=== PATIENT | male | born 1955 | race Caucasian/White ===

== ENCOUNTER → 2019-07-06 | Outpatient (RCR) | payer BC ==
[~2019-07-06] MED LIST: AMIO400T5 PO; ATR20T PO; DILT240C PO; FINA5TAB6 PO; LISI5TAB PO; MTP25TSR PO; NFNEB10T PO; RIVA20TA2 PO; ROSU10TA12 PO
== END | disposition home or self-care (01) ==
LOC: ONC 04-07 13:09 → MERGE 06-16 07:49 → ONC 06-16 07:49
PROVIDERS: ATTEND Radiology Radiation Oncology
DX: C61 Malignant neoplasm of prostate (principal); I48.0 Paroxysmal atrial fibrillation; Z90.89 Acquired absence of other organs; Z98.52 Vasectomy status
CPT/HCPCS: 77300; 77301; 77334; 77336; 77338; 77385; 99204

== ENCOUNTER 2019-07-07 07:43 | Outpatient (RCR) | payer BC | END 2019-10-05 | disposition home or self-care (01) | LOC: ONC 07:43 | PROVIDERS: ATTEND Radiology Radiation Oncology | DX: Z51.0 Encounter for antineoplastic radiation therapy (principal); C61 Malignant neoplasm of prostate; I48.0 Paroxysmal atrial fibrillation; Z90.89 Acquired absence of other organs; Z98.52 Vasectomy status | CPT/HCPCS: 77336; 77385 ==

== ENCOUNTER 2022-07-17 05:55 | Outpatient (CLI) | payer BC ==
[~2022-07-17] VITALS: Ht 190.5 cm; Wt 129.5 kg
[2022-07-17] MEDS ORDERED: BUME0.5T5 PO (09:30)
[2022-07-17] MEDS ORDERED: SPIR25TA5 PO (09:30)
[2022-07-17] MEDS ORDERED: DRON400T6 PO (09:30)
[2022-07-17] MEDS ORDERED: MTP100TCR PO (09:30)
== END 2022-07-17 09:41 | disposition home or self-care (01) ==
LOC: PREOP 05:55
PROVIDERS: ATTEND Internal Medicine
DX: Z01.818 Encounter for other preprocedural examination (principal)

== ENCOUNTER 2022-07-26 09:50 | Day surgery (SDC) | payer BC ==
--- NOTE | 2022-07-15 14:23 | HISTORY AND PHYSICAL ---
DATE OF SERVICE: 07/26/2022 COLONOSCOPY SUMMARY HISTORY OF PRESENT ILLNESS: The patient is a 67-year-old white male seen for yearly wellness evaluation. It has been 11 years since his last colonoscopy that was unremarkable, so he is being set up for his second screening colonoscopy. He is not aware of any family history for colon cancer. He has not seen any red blood in the stool. Denies melena or bowel habit change. He reports that all in all, he has been feeling well. PAST MEDICAL HISTORY: Significant for persistent atrial fibrillation. In about a month, he is going to be set up for a second attempt at ablation; first was not successful. He has been compliant with anticoagulation in the form of Xarelto without any bleeding problems. 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 He back in atrial fibrillation has noticed a little decrease in exercise tolerance, but has had no chest discomfort. He has had no lightheadedness, syncope or presyncope. SOCIAL HISTORY: He is a teacher at [employer] with no past smoking and no significant alcohol intake. He is fully up to date on COVID vaccination and influenza as well as Shingrix and Pneumovax. PHYSICAL EXAMINATION: GENERAL: Reveals a white male, appeared to be in no acute distress. VITAL SIGNS: Blood pressure 110/80, weight was up 9 pounds to 185. HEENT: Unremarkable. Ear canals clear with normal TMs. NECK: Revealed no JVD, adenopathy or bruits. CHEST: Clear to auscultation. CARDIOVASCULAR: Reveals an irregularly irregular rhythm with a heart rate in the 70s. No murmur, S3, or S4 noted. ABDOMEN: Soft, supple without mass, organomegaly, or tenderness. EXTREMITIES: Revealed no cyanosis, clubbing or edema. ASSESSMENT AND PLAN: 1. Persistent atrial fibrillation. The patient to be undergoing second ablation procedure on 08/14/2022. He is being set up for screening colonoscopy, I believe on 08/02/2021. We will hold Xarelto for 48 hours prior. Continuing his other medications. We did discuss the importance of moving on a regular basis, attempting to get 6000 steps per day as being a reasonable minimum based on recent studies and also discussed the importance of portion control, considering that his BMI is 37. 2. Not commented above, the patient has history of prostate cancer. He has very slow increase in PSA, now 5 years out from initial robotic prostatectomy followed by radiation therapy due to a positive margin. He has been told that he gets to a PSA of 0.2. They will set him up for a PET scan, but his last one was still well under this. Prep instructions were given for colonoscopy and questions were answered. I will see him back in 6 months for routine followup. Job ID: [id number] DocumentID: [id number] Dictated Date: 07/15/2022 13:51:23 Cafe Site Attendant Date: 07/15/2022 14:20:00 Dictated By: YESSY THACKER MD MTDD
[~2022-07-26] VITALS: Ht 191 cm; Wt 129.5 kg
[~2022-07-26 09:50] MED LIST changes: +BUME0.5T5 PO; +DRON400T6 PO; +MTP100TCR PO; +SPIR25TA5 PO
[2022-07-26] MEDS ORDERED: LACTATED RINGERS 1,000 ML IV STA (09:53)
[2022-07-26 10:20] VITALS: BP 147/96
[2022-07-26] MEDS ORDERED: PROPOFOL INJECTION 0 ML IV ONE (11:19)
[2022-07-26] MEDS ORDERED: PROPOFOL INJECTION 50 ML IV ONE (11:20)
--- NOTE | 2022-07-26 11:42 | Anesthesia-General Post-Op ---
MAC Patient Condition Mental Status/LOC: Same as Preop Cardiovascular: Satisfactory Nausea/Vomiting: Absent Respiratory: Satisfactory Pain: Controlled Complications: Absent Post Op Complications Complications None Follow Up Care/Instructions Patient Instructions None needed. Anesthesiology Discharge Order Discharge Order Patient is doing well, no complaints, stable vital signs, no apparent adverse anesthesia problems. No complications reported per nursing. EMORY PEREZ CRNA Jul 26, 2022 11:42
[2022-07-26 11:45] VITALS: BP 113/71
--- NOTE | 2022-07-26 11:47 | Pre-Op Note & Conscious Sedat ---
Pre-Operative Progress Note Date H&P Reviewed: Jul 26, 2022 Time H&P Reviewed: 10:30 History & Physical: H&P Reviewed, Patient Examed, No changes noted Pre-Op Diagnosis: screening Conscious Sedation Pre-Proced ASA Score 3 For ASA 3 and 4: Consider anesthesia and medical clearance. Also, for patients with a history of failed moderate sedation consider anesthesia. Airway Lungs Heart ASA score ASA 1: a normal healthy patient ASA 2: a patient with a mild systemic disease (mid diabetes, controlled hypertension, obesity ASA 3: a patient with a severe systemic disease that limits activity (angina, COPD, prior Myocardial infarction) ASA 4: a patient with an incapacitating disease that is a constant threat to life (CHF, renal failure) ASA 5: a moribund patient not expected to survive 24 hrs. (ruptured aneurysm) ASA 6: a declared brain- patient whose organs are being harvested. For emergent operations, add the letter E after the classification Mallampati Classification Grade 2 Sedation Plan Analgesia, Amnesia, Plan communicated to team members, Discussed options with patient/fam, Discussed risks with patient/fam The patient is an appropriate candidate to undergo the planned procedure, sedation, and anesthesia. The patient immediately re-assessed prior to indication. YESSY THACKER MD Jul 26, 2022 11:47
--- NOTE | 2022-07-26 11:49 | Progress Note-Post Operative ---
Post-Procedure Note Physician (s)/Client Advocate (s) Physician YESSY THACKER MD Pre-Procedure Diagnosis Pre-Procedure Diagnosis: screening Post-Procedure Diagnosis Post-operative diagnosis: Prior to undergoing colonoscopy digital rectal evaluation was performed. There is surgical absence of the prostate with an otherwise unremarkable digital exam of the anal canal and distal rectal vault. The colonoscope was then inserted into the rectum and under direct visualization advanced to the cecum. The cecum was identified by identification of the ileocecal valve and cecal strap. Photographic documentation was obtained. Careful inspection was made as the colonoscope withdrawn. Quality the prep was good. Findings: There are no evidence for internal/external hemorrhoids. There are some telangiectasia changes in the mid and distal rectum compatible with mild radiation proctitis with no evidence for ulceration no rectal polyps were noted. Diminutive 4 mm polyps were noted in the descending colon proximal transverse colon and 2 in the mid ascending colon and one in the proximal ascending colon. All were biopsied and ablated with noted minimal blood loss. Several sigmoid diverticulum were present without evidence of diverticulitis. No other abnormalities were noted on colonoscopy to the cecum under good prep conditions. As long as there are no surprises on histopathology report we will advocate consideration for repeat screening colonoscopy in 10 years. YESSY THACKER MD Jul 26, 2022 11:49
[2022-07-26 11:50] VITALS: BP 116/75
[2022-07-26] MEDS ORDERED: LACTATED RINGERS 1,000 ML IV ONE (11:59)
[2022-07-26 12:34] VITALS: BP 116/81
== END 2022-07-26 12:20 | disposition home or self-care (01) ==
LOC: ENDO 09:50
PROVIDERS: ATTEND Internal Medicine
DX: Z12.11 Encounter for screening for malignant neoplasm of colon (principal); K62.7 Radiation proctitis; K57.30 Diverticulosis of large intestine without perforation or abscess without bleeding; D12.3 Benign neoplasm of transverse colon; D12.2 Benign neoplasm of ascending colon; D12.4 Benign neoplasm of descending colon; I48.19 Other persistent atrial fibrillation; Z79.01 Long term (current) use of anticoagulants
CPT/HCPCS: 88305

== ENCOUNTER → 2022-08-21 | Outpatient (CLI) | payer BC ==
--- NOTE | 2022-08-21 13:14 | Diagnostic Imaging Report ---
INDICATION: SWELLING OF LEFT LEG TECHNIQUE: Multiple real-time grayscale images were obtained over the left lower extremity in various projections, bilaterally. Additional duplex Doppler and color Doppler images were also obtained. CORRELATION STUDY: None FINDINGS: Color and grayscale sonographic images demonstrate no intraluminal defect within the visualized portion of the common femoral, superficial femoral and/or popliteal veins to suggest thrombus formation. These vessels demonstrate normal response to compression and augmentation. No soft tissue fluid collection. IMPRESSION: 1. Negative for deep venous thrombosis of the left leg. Dictated by: Dictated on workstation # [id number]
== END ==
LOC: RAD 11:26
PROVIDERS: ATTEND Internal Medicine
DX: M79.89 Other specified soft tissue disorders (principal); M79.662 Pain in left lower leg